=== PATIENT | male | born 1935 | race Two or more races ===

== ENCOUNTER → 2017-08-09 | Outpatient (CLI) | payer MEDICARE ==
[~2017-08-09] MED LIST: AMLODIPINE10 MG PO; CARVEDILOL6.25 MG PO; HYDROCHLOROTHIA25 M1 PO; NIACIN500 M3 PO; PRAVASTATIN 40M40 MG PO; SEPTRA DS 800 M1 TAB PO; TEMAZEPAM15 MG PO; TERAZOSIN5 MG PO
[2017-08-09 15:48] LABS: HEMOGLOBIN 14.7 g/dL (14.1-18.0); LYMPH # 2.8 K/mm3 (0.7-4.5); LYMPH % 26.5 % (10-50)
[2017-08-09 20:03] LABS: BUN 21 mg/dL (7-18)
[2017-08-09 20:06] LABS: GFR (ESTIMATED) 53 ML/MIN (>60)
[2017-08-11 08:44] LABS: Vitamin D, 25-Hydroxy 33.2 ng/mL (30.0-100.0)
== END ==
LOC: LAB 15:01
PROVIDERS: Internal Medicine Adolescent Medicine
DX: R41.3 Other amnesia (principal); Z79.899 Other long term (current) drug therapy